=== PATIENT | female | born 1980 | race Hispanic/Latino ===

== ENCOUNTER 2017-07-06 22:07 | Inpatient (IN) | payer MEDICAID, OTHER, SELFPAY ==
[2017-07-06 22:51] VITALS: BMI 27.9
[2017-07-06] MEDS ORDERED: Promethazine HCl 25 MG/ML VIAL IM PRN (23:10)
[2017-07-06] MEDS ORDERED: Misoprostol 200 MCG TAB PR PRN (23:10)
[2017-07-06] MEDS ORDERED: Diphenoxylate HCl/Atropine Tablet PO PRN (23:10)
[2017-07-06] MEDS ORDERED: LR / Pitocin 40 units/1000 ml 1,000 ML IV PRN (23:10)
[2017-07-06] MEDS ORDERED: Lidocaine 1% (PF) 30 ML VIAL SC PRN ×2 (23:10→23:41)
[2017-07-06] MEDS ORDERED: Acetaminophen 500 MG TAB PO PRN (23:10)
[2017-07-06] MEDS ORDERED: Carboprost 250 MCG/ML AMP IM PRN (23:10)
[2017-07-06] MEDS ORDERED: HYDROcodone/Acetaminophen 5/325 mg Tablet PO PRN (23:10)
[2017-07-06] MEDS ORDERED: Ondansetron HCl/PF 4 MG/2 ML Vial IVP PRN (23:10)
[2017-07-06 23:29] LABS: Hematocrit 35.5 % (36.0-47.0); Mean Platelet Volume 8.2 fL (7.4-10.4); White Blood Cell (WBC) Count 7.5 thou/uL (4.8-10.8)
--- NOTE | 2017-07-06 23:41 | PDOC.LDHP ---
Labor and Delivery H&P Chief complaint: scheduled induction HPI: Patient is a 37yo at 40w1d here for cytotec induction, only complications in were AMA and UTI with negative CHRIS. Hx of x3 with no problems. Reports good FM, no LOF, no vaginal bleeding, no ctx. No recent illnesses, no dysuria, no vaginal discharge, no fevers. Current gestational age (weeks): 40 (40.1) Due date: 07/05/17 Dating criteria: last menstrual period Grav: 4 Para: 3 OB History Details: x3, term, no complications Current complications: other (advanced maternal age) Abnormal US findings: No Past Medical History: Breast mass removed at 20yo in [place] Current medications: pre- vitamins Social history: none - Physical Exam Vital signs reviewed and normal: yes Abnormal vital signs: none General: NAD Heart: RRR Lungs: CTAB Abdomen: gravid Extremeties: no edema FHT: category 1 (baseline HR is 160's) [place] contractions every: none seen - Vaginal Exam cm dilated: 0 (fingertip) Station: -3 - OB Labs Blood type: A RH: positive HIV: negative RPR: negative HEPSAg: negative 1 hour GCT: negative GBS: positive - Assessment L&D Assessment: elective induction at term - Plan Plan: admit to L&D, cervical ripening, labor augmentation if indicated, GBS antibiotic prophylaxis, anesthesia consult for pain management -: 37yo at 40.1 by LMP here for cytotec induction. - Admit to L&D, routine labor care - Cytotec q3h if no tachysystole - GBS positive: PCN prophylaxis, loading dose of 5mg and 2.5mg q6h thereafter - FHT reveals baseline HR of 160's, monitor closely for tachycardia, no signs or symptoms of infection at this point. - Cervical checks q4h <Evon Griggs - Last Filed: 07/06/17 23:43> <Teresa Delgado - Last Filed: 07/07/17 00:45> Allergies/Adverse Reactions: Allergies Allergy/AdvReac Type Severity Reaction Status Date / Time No Known Allergies Allergy Unverified 07/06/17 22:53 Attending Addendum - Attending Addendum I personally evaluated the patient and discussed the management with Dr. Griggs I agree with the History, Examination, Assessment and Plan documented above with any addition or exceptions noted below. 37 yo female at 40.1 wks by 11.4 wk sono here for elective IOL for AMA and late term gestation. 1. sIUP: IOB labs reviewed. NILM. Anatomy scan not in record at present but stated to be WNL. 1 hour gtt = 128. 3T negative. GBS positive. Vertex. EFW = 6 3 /4 lbs to 7 lbs. 2. AMA: Declined NIPT. 3. UTI x1: CHRIS negative. 4. GBS pos: PCN. 5. IOL: Solares of 3. Will start with miso. Continuous monitoring. Will likely feed in AM before proceeding. Anticipate long induction. Has been 6 years since last delivery. Gosia <Teresa Delgado - Last Filed: 07/07/17 00:45>
[2017-07-06] MEDS: Misoprostol 100 MCG TAB VAG SCH (23:42)
[2017-07-06] MEDS ORDERED: Penicillin G Potassium 5 MILL.UNITS in Sodium Chloride 0.9% 100 ML IVPB SCH (23:45)
[2017-07-06] MEDS: Lactated Ringer's 1,000 ML IV SCH (23:54)
[2017-07-07] MEDS: Lactated Ringer's 1,000 ML IV SCH ×2 (02:44→08:02)
[2017-07-07] MEDS ORDERED: Sodium Chloride 0.9% 1,000 ML IV ONE (03:17)
[2017-07-07] MEDS: Misoprostol 100 MCG TAB VAG SCH ×3 (03:59→15:58)
[2017-07-07] MEDS: Penicillin G 2.5 MILL.units 2.5 MILL.UNITS in Premix Bag 1 BAG IVPB SCH ×4 (04:01→12:05)
--- NOTE | 2017-07-07 05:17 | PDOC.LDPN ---
Labor & Delivery Progress Note - Subjective Subjective: comfortable - Objective Vital signs reviewed and normal: yes General: NAD, resting Uterine fundus: palpable contractions Dilation: 1 Station: -3 FHT: category 1 [place] contractions every: q3-5min Resuscitative measures: maternal oxygen, maternal IV fluids, maternal position change - Assessment (1) Elective induction of labor planned Code(s): [id number] - Current Visit: Yes Status: Acute Comment: 37yo at 40.1 by 11w2d sono here for elective IOL for AMA and late term . - Solares score of 3, cytotec placed at 2345 07/06, and again at 0400 07/07 - FHT strip has revealed some runs of tachycardia that resolved with a 1L bolus of LR. Will continue to monitor. - GBS positive, has recieved PCN x2 - continue routine labor care (2) AMA (advanced maternal age) multigravida 35+ Code(s): O09.529 - SUPERVISION OF ELDERLY MULTIGRAVIDA, UNSPECIFIED TRIMESTER Current Visit: Yes Status: Acute (3) Group beta Strep positive Code(s): B95.1 - STREPTOCOCCUS, GROUP B, CAUSING DISEASES CLASSD ELSWHR Current Visit: Yes Status: Acute Plan: continue plan of care, labor augmentation <Evon Griggs - Last Filed: 07/07/17 05:14> Attending Addendum - Attending Addendum I personally evaluated the patient and discussed the management with Dr. Griggs I agree with the History, Examination, Assessment and Plan documented above with any addition or exceptions noted below. 37 yo female at 40.2 wks by 11.4 wk sono here for elective IOL for AMA and late term gestation. 1. sIUP: IOB labs reviewed. NILM. Anatomy scan not in record at present but stated to be WNL. 1 hour gtt = 128. 3T negative. GBS positive. Vertex. EFW = 6 3 /4 lbs to 7 lbs. 2. AMA: Declined NIPT. 3. UTI x1: CHRIS negative. 4. GBS pos: PCN. 5. IOL: Miso x2. FHT reassuring Cat I at present. Will transfer care to day team. Monitor IVF intact. Would consider breakfast this AM if able. ABrayMD <Teresa Delgado - Last Filed: 07/07/17 09:18>
[2017-07-07] MEDS: Dextrose 5%-Lactated Ringers 1,000 ML IV SCH ×3 (06:06→15:58)
[2017-07-07] MEDS ORDERED: Lactated Ringer's 1,000 ML IV SCH (06:45)
[2017-07-07] MEDS ORDERED: Fentanyl 4 mcg/Marc 0.1% Cadd 100 ML ONE (08:10)
--- NOTE | 2017-07-07 08:24 | PDOC.LDPN ---
Labor & Delivery Progress Note - Subjective Subjective: painful contractions, no concerns - Objective Vital signs reviewed and normal: yes General: breathing through contractions Uterine fundus: non tender Effacement: 50% Station: -3 FHT: category 1 (bl hr 150s), early decelerations, variability present [place] contractions every: 2-3 min - Assessment (1) AMA (advanced maternal age) multigravida 35+ Code(s): O09.529 - SUPERVISION OF ELDERLY MULTIGRAVIDA, UNSPECIFIED TRIMESTER Current Visit: Yes Status: Acute (2) Elective induction of labor planned Code(s): [id number] - Current Visit: Yes Status: Acute (3) Group beta Strep positive Code(s): B95.1 - STREPTOCOCCUS, GROUP B, CAUSING DISEASES CLASSD ELSWHR Current Visit: Yes Status: Acute Plan: continue plan of care -: 37yo at 40.1 by 11w2d sono here for elective IOL for AMA and late term . - Solares score of 5 -cat 1 strip - GBS positive, has recieved PCN x2, third dose running now -cervical checks q2h -painful contractions q2-3 minutes, pt wishes to have epidural will consult anesthesia - continue routine labor care
[2017-07-07] MEDS ORDERED: Fentanyl 100 MCG/2 ML VIAL ONE (08:40)
[2017-07-07] MEDS ORDERED: Lidocaine 2% PF 10 ML AMP (For Epidural Use) ONE (11:11)
[2017-07-07] MEDS: Ibuprofen 800 MG TAB PO PRN (14:05)
[2017-07-07] MEDS ORDERED: Lanolin Ointment 7 GM TUBE TOP PRN (15:24)
[2017-07-07] MEDS ORDERED: Bisacodyl 10 MG SUPP PR PRN (15:24)
[2017-07-07] MEDS ORDERED: Ondansetron HCl/PF 4 MG/2 ML Vial IVP PRN (15:24)
[2017-07-07] MEDS ORDERED: Milk Of Magnesia 30 ML UDCUP PO PRN (15:24)
[2017-07-07] MEDS ORDERED: diphenhydrAMINE HCl 25 MG CAP PO PRN (15:24)
[2017-07-07] MEDS ORDERED: traMADol HCl 50 MG TAB PO PRN (15:24)
[2017-07-07] MEDS ORDERED: Adacel (T-DAP) 0.5 ML VIAL IM ONE (15:24)
[2017-07-07] MEDS ORDERED: LR / Pitocin 40 units/1000 ml 1,000 ML IV SCH (15:24)
[2017-07-07] MEDS: Ibuprofen 800 MG TAB PO SCH ×2 (15:59→21:24)
--- NOTE | 2017-07-07 16:07 | PDOC.OPDEL ---
OB Operative/Delivery Note Delivery Dr/Surgeon: Mathieu Jaramillo, Attending: Gary Lloyd Assist: Jon Hernández Pre-Delivery Diagnosis: active labor Procedure/Post Delivery Dx: spontaneous vaginal delivery Weeks gestation: 40 Anesthesia: epidural - Additional Findings/Plan Placenta delivered: spontaneous Repaired Obstetrical Laceration: 1st degree (repaired w/ 2-0 vicryl w/ adequate hemostasis) Estimated blood loss: 200 Compilations/Other Findings: G4 now P4 GBS+ mother with pcn X3, adequately ppx, delivered at 40.1 via on 07/07/2017 @ 1240, APGARS 9&9. EBL 200. 1st degree perineal lac repaired with 2-0 vicryl, adequate hemostasis. Placenta via zarate. Post delivery plan: routine recovery
[2017-07-07] MEDS: Ferrous Sulfate 325 MG TAB PO SCH (17:24)
[2017-07-07] MEDS: Docusate (Surfak) 240 MG CAP PO SCH (21:24)
[2017-07-08 05:29] LABS: #Eosinphils 0.1 thou/uL (0.0-0.7); #Lymphocytes 2.9 thou/uL (1.20-3.40); #Monocytes 0.5 thou/uL (0.11-0.59); #Neutrophils 6.4 thou/uL (1.40-6.50); %Basophils 0.4 % (0.0-1.0); %Lymphocytes 28.9 % (21.0-51.0); %Monocytes 5.2 % (0.0-10.0); Hematocrit 32.3 % (36.0-47.0); Mean Platelet Volume 7.8 fL (7.4-10.4); Red Blood Cell (RBC) Count 3.48 mill/uL (4.20-5.40); White Blood Cell (WBC) Count 9.9 thou/uL (4.8-10.8)
[2017-07-08] MEDS: Ibuprofen 800 MG TAB PO SCH ×3 (05:46→21:22)
--- NOTE | 2017-07-08 08:21 | PDOC.PP ---
Post Progress Note Post Day #: 1 PO intake tolerated: yes Flatus: yes Ambulation: yes Vital Signs (12 hours) Temp Pulse Resp BP 07/08/17 07:48 97.9 F 65 18 118/65 07/07/17 23:25 97.9 F 62 18 110/57 L Weight Weight 76.204 kg - Physical Examination General: NAD Cardiovascular: no m/r/g, RRR Respiratory: clear to ausculation bilateral Abdominal: + bowel sounds, lochia, no distention, appropriately TTP Extremities: negative homans (B) Neurological: no gross focal deficits Psychiatric: normal affect Result Diagrams: 07/08/17 05:19 Additional Labs: Post Labs Blood Type A POSITIVE 07/06/17 23:03 Hep Bs Antigen Non-Reactive S/CO (NonReactive) 07/06/17 23:03 (1) AMA (advanced maternal age) multigravida 35+ Code(s): O09.529 - SUPERVISION OF ELDERLY MULTIGRAVIDA, UNSPECIFIED TRIMESTER Status: Acute (2) Elective induction of labor planned Code(s): [id number] - Status: Acute (3) Group beta Strep positive Code(s): B95.1 - STREPTOCOCCUS, GROUP B, CAUSING DISEASES CLASSD ELSWHR Status : Acute - Assessment/Plan pt tolerating po, ambulating, urinating and passing flatus scant lochia, per nurse reports her pain is well controlled and she wishes to go home today she is GBS positive and received pen X3 prior to delivery VSS, H&H 10.9/32.3 will plan for DC today pending baby's 24 hr bili check is not high risk <Mathieu Jaramillo - Last Filed: 07/08/17 08:16> Vital Signs (12 hours) Temp Pulse Resp BP 07/08/17 08:00 97.9 F 65 18 07/08/17 07:48 97.9 F 65 18 118/65 Weight Weight 76.204 kg Result Diagrams: 07/08/17 05:19 Additional Labs: Post Labs Blood Type A POSITIVE 07/06/17 23:03 Hep Bs Antigen Non-Reactive S/CO (NonReactive) 07/06/17 23:03 <Gary Lloyd - Last Filed: 07/08/17 12:03> Attending Addendum - Attending Addendum I personally evaluated the patient and discussed the management with Dr. Jaramillo. I agree with the History, Examination, Assessment and Plan documented above with any addition or exceptions noted below. Recommend 48 hour stay 2/2 GBS status. Parents are thinking about discharge. Risks discussed. <Gary Lloyd - Last Filed: 07/08/17 12:03>
[2017-07-08] MEDS: Docusate (Surfak) 240 MG CAP PO SCH ×2 (09:09→21:23)
[2017-07-08] MEDS: Prenatal Vitamin 1 TAB PO SCH (09:09)
[2017-07-08] MEDS: Ferrous Sulfate 325 MG TAB PO SCH ×2 (09:09→18:26)
[2017-07-08] MEDS: Ibuprofen 800 MG TAB PO PRN (14:09)
[2017-07-09] MEDS: Ibuprofen 800 MG TAB PO SCH ×2 (05:49→14:16)
[2017-07-09 08:10] VITALS: BP 115/69; TEMP 98
--- NOTE | 2017-07-09 08:38 | PDOC.PP ---
Post Progress Note Post Day #: 2 PO intake tolerated: yes Flatus: yes Ambulation: yes Vital Signs (12 hours) Temp Pulse Resp BP 07/09/17 08:08 98.0 F 72 20 115/69 07/09/17 08:00 98.0 F 72 20 Weight Weight 76.204 kg - Physical Examination General: NAD Cardiovascular: no m/r/g, RRR Respiratory: clear to ausculation bilateral Abdominal: + bowel sounds, no distention, appropriately TTP Extremities: negative homans (B) Neurological: no gross focal deficits Psychiatric: normal affect Result Diagrams: 07/08/17 05:19 Additional Labs: Post Labs Blood Type A POSITIVE 07/06/17 23:03 Hep Bs Antigen Non-Reactive S/CO (NonReactive) 07/06/17 23:03 (1) AMA (advanced maternal age) multigravida 35+ Code(s): O09.529 - SUPERVISION OF ELDERLY MULTIGRAVIDA, UNSPECIFIED TRIMESTER Status: Acute (2) Elective induction of labor planned Code(s): [id number] - Status: Acute (3) Group beta Strep positive Code(s): B95.1 - STREPTOCOCCUS, GROUP B, CAUSING DISEASES CLASSD ELSWHR Status : Acute - Assessment/Plan pt tolerating po, ambulating, urinating and passing flatus reports her pain is well controlled, decided to stay yesterday 2/2 baby being obs 2/2 moms gbs status she is GBS positive and received pen X3 prior to delivery VSS, H&H 10.9/32.3 will plan for DC today. <Mathieu Jaramillo - Last Filed: 07/09/17 08:37> Vital Signs (12 hours) Temp Pulse Resp BP 07/09/17 08:08 98.0 F 72 20 115/69 07/09/17 08:00 98.0 F 72 20 Weight Weight 76.204 kg Result Diagrams: 07/08/17 05:19 Additional Labs: Post Labs Blood Type A POSITIVE 07/06/17 23:03 Hep Bs Antigen Non-Reactive S/CO (NonReactive) 07/06/17 23:03 <Gary Lloyd - Last Filed: 07/09/17 10:41> Attending Addendum - Attending Addendum I personally evaluated the patient and discussed the management with Dr. Jaramillo. I agree with the History, Examination, Assessment and Plan documented above with any addition or exceptions noted below. Ok for d/c after 48h obs <Gary Lloyd - Last Filed: 07/09/17 10:41>
[2017-07-09] MEDS: Prenatal Vitamin 1 TAB PO SCH (09:28)
[2017-07-09] MEDS: Docusate (Surfak) 240 MG CAP PO SCH (09:28)
[2017-07-09] MEDS: Ferrous Sulfate 325 MG TAB PO SCH (09:31)
== END 2017-07-09 15:30 | disposition home or self-care (01) | DRG 774 ==
LOC: L&D 22:07 → 3SW 07-07 16:04
PROVIDERS: ADMIT Student in an Organized Health Care Education/Training Program; ATTEND Student in an Organized Health Care Education/Training Program
PROC: 10E0XZZ Delivery of Products of Conception, External Approach (ICD-10-PCS; principal; 2017-07-07)
PROC: 0HQ9XZZ Repair Perineum Skin, External Approach (ICD-10-PCS; 2017-07-07)
PROC: 3E0P3VZ Introduction of Hormone into Female Reproductive, Percutaneous Approach (ICD-10-PCS; 2017-07-07)
DX: O70.0 First degree perineal laceration during delivery (principal); O75.3 Other infection during labor; N39.0 Urinary tract infection, site not specified; O99.824 Streptococcus B carrier state complicating childbirth; Z3A.40 40 weeks gestation of pregnancy; Z37.0 Single live birth; Z23 Encounter for immunization
CPT/HCPCS: 36415; 76815; 85025; 85027; 86780; 87340; 90715; J2001; J2540; J3010; J7050

== ENCOUNTER 2019-12-08 19:30 | Inpatient (IN) | payer MEDICAID, OTHER, SELFPAY ==
[2019-12-08 20:48] VITALS: BMI 28.0
[2019-12-08] MEDS: Lactated Ringer's 1,000 ML IV SCH (21:14)
[2019-12-08] MEDS ORDERED: NS / Oxytocin 40 units/1000ml 1,000 ML IV PRN (22:04)
[2019-12-08] MEDS ORDERED: Promethazine HCl 25 MG/ML VIAL IM PRN (22:04)
[2019-12-08] MEDS ORDERED: Lidocaine 1% (PF) 30 ML VIAL SC PRN (22:04)
[2019-12-08] MEDS ORDERED: Misoprostol 200 MCG TAB PR PRN (22:04)
[2019-12-08] MEDS ORDERED: hydrALAZINE 20 MG/ML VIAL SLOW IVP PRN (22:04)
[2019-12-08] MEDS ORDERED: Ondansetron PF 4 MG/2 ML Vial IVP PRN (22:04)
[2019-12-08] MEDS ORDERED: Butorphanol Tartrate 1 MG/ML VIAL SLOW IVP PRN (22:04)
[2019-12-08] MEDS ORDERED: Acetaminophen 500 MG TAB PO PRN (22:04)
[2019-12-08] MEDS ORDERED: Methylergonovine 0.2 MG/ML VIAL IM PRN (22:04)
--- NOTE | 2019-12-08 22:06 | PDOC.FPROB ---
FMR OB H&P: HPI - History of Present Illness Chief Complaint: scheduled blaloon IOL Indentification: 39F @ 40.0wga by 14wk US History of Present Illness: Patient is a 39F @ 40.0wga by 14wk US here today for balloon IOL. Patient reports feeling an occasional contraction, denies vaginal discharge, loss of fluid, or vaginal bleeding. Endorses movement. Denies cp, sob, abdominal pain, swelling, headaches, vision changes. Desires an epidural. Plans on breast/bottle feeding. has been complicated by: -AMA -Anemia of -Grandmultiparity -+PPD (neg CXR 11/08) She is here today for scheduled balloon IOL. Risks and benefits of a balloon induction were discussed and patient was agreeable with the plan of care. 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 - Surgical History Sx History: L breast cyst removed age 20 - Social History Social History: non smoker, no etoh, no drug use - Family History Family History: paternal uncle of DM FMR OB H&P: Medications - Current Home Medications: Medication Instructions Recorded Confirmed Type 21/Iron Fu/Folic Acid 1 tablet PO DAILY 07/06/17 07/06/17 History [ Complete Caplet] Allergies/Adverse Reactions: Allergies Allergy/AdvReac Type Severity Reaction Status Date / Time No Known Allergies Allergy Verified 12/08/19 20:49 FMR OB H&P: ROS - Review of Systems General: denies: fever/chills, weight/appetite/sleep changes Eyes: denies: eye pain, vision changes ENT: denies: nasal congestion, rhinorrhea Cardiovascular: denies: chest pain, edema Respiratory: denies: cough, shortness of breath Gastrointestinal: denies: abdominal pain, vomiting, constipation Genitourinary (Female): denies: incontinence, dysuria Musculoskeletal: denies: pain, tenderness Neurologic: denies: syncope, seizures Integumentary: denies: itching, rash Endocrine: denies: cold intolerance, heat intolerance Hematologic/Lymphatic: denies: prolonged or excessive bleeding, enlarged lymph nodes Psychological: denies: depression, anxiety FMR OB H&P: Vital Signs - Maternal Vital signs: BP 103/69, p83, 98.1F - Heart Tones Baseline: 135 Variability: moderate Acceleration: present Deceleration: absent Category: category 1 [place] contractions every: occasional FMR OB H&P: Physical Exam - Physical Exam General: NAD, awake, alert and oriented HEENT: normocephalic and atraumatic, MMM Neck: supple, FROM Chest: non-tender to palpation, no lesions Heart: RRR, normal S1/S2 General: CTAB, no respiratory distress Abdomen: gravid, non-tender, bowel sound present Musculoskeletal: normal gait and station, pulses present, FROM in all four extremities Neurological: no clonus, no focal deficit Skin: no rash, good tugor Lymphatic: no unusual bruising or bleeding, no purpura Psychiatric: intact recent and remote memory, good judgement and insight - Pelvic Exam Vulva: normal hair distribution SVE: 1/thick/high FMR OB H&P: A/P - Problem List (1) Anemia affecting Current Visit: Yes Status: Acute Code(s): O99.019 - ANEMIA COMPLICATING , UNSPECIFIED TRIMESTER Qualifiers: Trimester: third trimester Qualified Code(s): O99.013 - Anemia complicating , third trimester (2) Multiparity, grand, in labor and delivery, antepartum Current Visit: Yes Status: Chronic Code(s): O09.40 - SUPERVISION OF W GRAND MULTIPARITY, UNSP TRIMESTER (3) PPD positive Current Visit: Yes Status: Chronic Code(s): R76.11 - NONSPECIFIC REACTION TO SKIN TEST W/O ACTIVE TUBERCULOSIS (4) AMA (advanced maternal age) multigravida 35+ Current Visit: No Status: Chronic Code(s): O09.529 - SUPERVISION OF ELDERLY MULTIGRAVIDA, UNSPECIFIED TRIMESTER (5) Elective induction of labor planned Current Visit: No Status: Acute Code(s): [id number] - Disposition: Patient is a 39F @ 40.0wga by 14wk US here today for balloon IOL. #Term sIUP, balloon IOL #Grandmultiparity -FHT: baseline 135, occasional ctx, cat 1 strip -SVE: 1/thick/high -GBS neg, PNL neg -will place balloon at this time and proceed with pit; will continue cervical checks q4h s/p balloon placement #Anemia of -H/H 12/35.2 on 10/25 -H/H 12.4/36.4 today -will continue to monitor #+PPD -no cough or other symptoms of TB -CXR negative 11/08 Diet: NPO with ice chips Dispo: admitted to L&D for balloon induction of labor + pit; will continue to monitor FHT and cervical checks q4h or sooner prn Code: Full PCP: MARCELLE-Jude/Kenrick/Danny Discussion: Date/Time: 12/08/19 2206 This H&P was discussed with [Kenrick] and [Carlos] who agree with the above documentation and plan. Signature: Maddie Collier-PGY1 Addendum - Attending - Attending Attestation Date/Time: 12/09/19 0800 I personally evaluated the patient and discussed the management with Dr. Collier I agree with the History, Examination, Assessment and Plan documented above with any addition or exceptions noted below. Balloon placed. expectant management.
[2019-12-08 22:27] LABS: Hemoglobin 12.4 g/dL (12.0-16.0); Mean Corpuscular Hemoglobin 30.9 pg (27.0-31.0); Mean Corpuscular Volume 91.1 fL (78.0-98.0); Mean Platelet Volume 9.6 fL (7.4-10.4); Platelet Count 161 thou/uL (130-400); White Blood Cell (WBC) Count 9.3 thou/uL (4.8-10.8)
[2019-12-08 23:05] LABS: Syphilis Antibody Nonreactive (Nonreactive); Syphilis Antibody Index 0.07 S/CO (<1.00 Non-Reactive)
[2019-12-08 23:14] LABS: HBSAg Index 0.11 S/CO (0-0.99); Hep B Surf Ag Non-Reactive S/CO (NonReactive)
[2019-12-09] MEDS ORDERED: Fentanyl 4 mcg/Bup 0.1% Cadd 100 ML ONE ×4 (01:45→17:10)
[2019-12-09] MEDS: Lactated Ringer's 1,000 ML IV SCH ×3 (02:25→15:21)
[2019-12-09] MEDS ORDERED: Acetaminophen 325 MG TAB PO PRN (02:31)
[2019-12-09] MEDS ORDERED: Lactated Ringer's 500 ML IV PRN (02:31)
[2019-12-09] MEDS ORDERED: Promethazine HCl 25 MG/ML VIAL IM PRN (02:31)
[2019-12-09] MEDS ORDERED: Naloxone HCl 0.4 mg/ml Vial IVP PRN ×2 (02:31)
[2019-12-09] MEDS ORDERED: Ondansetron PF 4 MG/2 ML Vial IVP PRN (02:31)
[2019-12-09] MEDS ORDERED: diphenhydrAMINE 50 MG/ML VIAL IVP PRN (02:31)
[2019-12-09] MEDS ORDERED: EPHEDRINE 25 MG/5 ML SYRINGE SLOW IVP PRN (02:31)
[2019-12-09] MEDS ORDERED: Communication Order-Pharmacy FS SCH (02:45)
[2019-12-09] MEDS ORDERED: Fentanyl 4 mcg/Bupivacaine 0.1% Cassette 100 ML EPIDURAL SCH (02:45)
[2019-12-09] MEDS ORDERED: NS / Oxytocin 40 units/1000ml 1,000 ML IV PRN (02:56)
[2019-12-09] MEDS ORDERED: Lidocaine 1% (PF) 30 ML VIAL SC PRN (02:56)
[2019-12-09] MEDS: NS w/ Oxytocin 10 units 500 ML IV SCH ×3 (03:16→17:40)
--- NOTE | 2019-12-09 06:46 | PDOC.LDPN ---
Labor & Delivery Progress Note - Subjective Subjective: comfortable - Objective Vital signs reviewed and normal: yes General: NAD, resting Uterine fundus: non tender SVE: 50/-3 FHT: category 1, variability present [place] contractions every: 3-4 - Assessment (1) Anemia affecting Code(s): O99.019 - ANEMIA COMPLICATING , UNSPECIFIED TRIMESTER Current Visit: Yes Status: Acute Qualifiers: Trimester: third trimester Qualified Code(s): O99.013 - Anemia complicating , third trimester (2) Multiparity, grand, in labor and delivery, antepartum Code(s): O09.40 - SUPERVISION OF W GRAND MULTIPARITY, UNSP TRIMESTER Current Visit: Yes Status: Chronic (3) PPD positive Code(s): R76.11 - NONSPECIFIC REACTION TO SKIN TEST W/O ACTIVE TUBERCULOSIS Current Visit: Yes Status: Chronic (4) AMA (advanced maternal age) multigravida 35+ Code(s): O09.529 - SUPERVISION OF ELDERLY MULTIGRAVIDA, UNSPECIFIED TRIMESTER Current Visit: No Status: Chronic (5) Elective induction of labor planned Code(s): [id number] - Current Visit: No Status: Acute Plan: continue plan of care, pitocin for augmentation -: Patient is a 39F @ 40.1wga by 14wk US here today for balloon IOL. #Term sIUP, balloon IOL #Grandmultiparity -FHT: baseline 135, ctx q3-4, cat 1 strip -SVE: /-3 @ 0620, balloon out, pit @ 8 -GBS neg, PNL neg #Anemia of -H/H 12/35.2 on 10/25 -H/H 12.4/36.4 on admission -will continue to monitor #+PPD -no cough or other symptoms of TB -CXR negative 11/08 Diet: NPO with ice chips Dispo: admitted to L&D IOL; balloon out and cat 1 strip on pit; will continue to monitor FHT and cervical checks q2h or sooner prn Code: Full PCP: PNC-Jude/Kenrick/Danny
--- NOTE | 2019-12-09 12:39 | PDOC.LDPN ---
Labor & Delivery Progress Note - Subjective Subjective: comfortable - Objective Vital signs reviewed and normal: yes General: NAD, resting Uterine fundus: non tender Dilation: 5 Effacement: 25% Station: -3 FHT: category 1 (150/mod/+accels/no decels) Plan: continue plan of care -: Epidural in place, comfortable Pitocin at 16. Head not well engaged, cannot safely AROM. Continue serial cervical checks.
--- NOTE | 2019-12-09 17:12 | PDOC.LDPN ---
Labor & Delivery Progress Note - Subjective Subjective: comfortable - Objective Vital signs reviewed and normal: yes General: NAD, resting Dilation: 6 Effacement: 50% Station: -3 FHT: category 1 [place] contractions every: 3-4min Plan: continue plan of care -: FHTs 140 Cat 1 Making small change /-3 Continue pitocin and serial cervical checks
--- NOTE | 2019-12-09 19:36 | PDOC.LDPN ---
Labor & Delivery Progress Note - Subjective Subjective: comfortable, painful contractions - Objective Abnormal vital signs: A few BP 140s-150s/60s-80s General: NAD, resting Uterine fundus: non tender SVE: /-2 AROM: clear fluid - Assessment (1) Anemia affecting Code(s): O99.019 - ANEMIA COMPLICATING , UNSPECIFIED TRIMESTER Current Visit: Yes Status: Acute Qualifiers: Trimester: third trimester Qualified Code(s): O99.013 - Anemia complicating , third trimester (2) Multiparity, grand, in labor and delivery, antepartum Code(s): O09.40 - SUPERVISION OF W GRAND MULTIPARITY, UNSP TRIMESTER Current Visit: Yes Status: Chronic (3) PPD positive Code(s): R76.11 - NONSPECIFIC REACTION TO SKIN TEST W/O ACTIVE TUBERCULOSIS Current Visit: Yes Status: Chronic (4) AMA (advanced maternal age) multigravida 35+ Code(s): O09.529 - SUPERVISION OF ELDERLY MULTIGRAVIDA, UNSPECIFIED TRIMESTER Current Visit: No Status: Chronic (5) Elective induction of labor planned Code(s): [id number] - Current Visit: No Status: Acute Plan: continue plan of care, pitocin for augmentation -: SROM @ 1851, /-2 at that time FHT: cat 1, baseline 135, ctx 2-3min, few early decels, no variables or lates BP: 134-151/63-87, patient denies GROSSMAN, changes in vision, swelling at this time. CBC, CMP, urine protein/creatinine pending Continue pit. Will continue to monitor FHT and repeat cervical checks q2h, likely sooner with earlys. Pre-e labs pending, will follow. Case discussed with Dr. Choudhary who is in agreement with the current plan of care.
[2019-12-09] MEDS ORDERED: Lidocaine 1% (PF) 30 ML VIAL ONE (19:59)
[2019-12-09] MEDS ORDERED: NS / Oxytocin 40 units/1000ml 1,000 ML ONE (19:59)
[2019-12-09 20:07] LABS: #Lymphocytes 1.4 thou/uL (1.20-3.40); #Monocytes 0.3 thou/uL (0.11-0.59); #Neutrophils 11.2 thou/uL (1.40-6.50); %Eosinophils 0.1 % (0.0-10.0); %Lymphocytes 10.5 % (21.0-51.0); %Monocytes 2.6 % (0.0-10.0); %Neutrophils 86.7 % (42.0-75.0); Hemoglobin 13.3 g/dL (12.0-16.0); Mean Corpuscular HGB CONC 34.7 g/dL (32.0-36.0); Mean Platelet Volume 9.3 fL (7.4-10.4); Platelet Count 153 thou/uL (130-400); Red Blood Cell (RBC) Count 4.15 mill/uL (4.20-5.40); White Blood Cell (WBC) Count 12.9 thou/uL (4.8-10.8)
[2019-12-09 20:27] LABS: Creatinine, Urine 67.73 mg/dL (47-110)
[2019-12-09] MEDS ORDERED: Calcium Gluc 4.6 MEQ/10 ML (100 MG/ML) SLOW IVP PRN (20:52)
[2019-12-09] MEDS ORDERED: Magnesium Sulfate 20 gm/500 ml 20 GM/500 ML BAG IVPB SCH (21:00)
[2019-12-09] MEDS ORDERED: Magnesium Sulfate 20 GM/WATER 500 ML BAG IVPB SCH (21:00)
[2019-12-09] MEDS ORDERED: Magnesium Sulfate 20 gm/500 ml 20 GM/500 ML BAG ONE (21:05)
--- NOTE | 2019-12-09 21:11 | PDOC.LDPN ---
Labor & Delivery Progress Note - Subjective Subjective: comfortable, painful contractions - Objective General: resting, breathing through contractions Uterine fundus: non tender SVE: FHT: category 2, variability present [place] contractions every: 2-3 - Assessment (1) Anemia affecting Code(s): O99.019 - ANEMIA COMPLICATING , UNSPECIFIED TRIMESTER Current Visit: Yes Status: Acute Qualifiers: Trimester: third trimester Qualified Code(s): O99.013 - Anemia complicating , third trimester (2) Multiparity, grand, in labor and delivery, antepartum Code(s): O09.40 - SUPERVISION OF W GRAND MULTIPARITY, UNSP TRIMESTER Current Visit: Yes Status: Chronic (3) PPD positive Code(s): R76.11 - NONSPECIFIC REACTION TO SKIN TEST W/O ACTIVE TUBERCULOSIS Current Visit: Yes Status: Chronic (4) AMA (advanced maternal age) multigravida 35+ Code(s): O09.529 - SUPERVISION OF ELDERLY MULTIGRAVIDA, UNSPECIFIED TRIMESTER Current Visit: No Status: Chronic (5) Elective induction of labor planned Code(s): [id number] - Current Visit: No Status: Acute Plan: continue plan of care, pitocin for augmentation -: SROM @ 1851, /-2 at that time 2 @ 2047 FHT: cat 2, baseline 135, ctx 2-3min, few early decels, one variables that improved with position changes BP: 160s-180s/70s-80s, patient denies GROSSMAN, changes in vision, swelling at this time. urine protein/creatinine 0.33 Pre-eclampsia with severe features due to BP. Will start mag at this time with q1h mag checks, strict I/O, and BP monitoring Continue pit. Will continue to monitor FHT and repeat cervical checks. Case discussed with Dr. Choudhary who is in agreement with the current plan of care.
[2019-12-09 21:26] LABS: ALT (SGPT) 12 U/L (8-55); AST (SGOT) 17 U/L (5-34); Albumin 3.6 g/dL (3.5-5.0); Alkaline Phosphatase 127 U/L (40-110); Anion Gap 16 mmol/L (10-20); BUN (Urea Nitrogen) 7 mg/dL (7.0-18.7); Bilirubin, Total 0.6 mg/dL (0.2-1.2); Calc. Creatinine Clearance 140 mL/min (70-130); Calcium 8.6 mg/dL (7.8-10.44); Carbon Dioxide 17 mmol/L (22-29); Chloride 107 mmol/L (98-107); Estimated GFR-MDRD Greater than 90; Globulin 2.8 g/dL (2.4-3.5); Glucose 65 mg/dL (70-105); Potassium 3.8 mmol/L (3.5-5.1); Protein, Total 6.4 g/dL (6.0-8.3); Sodium 136 mmol/L (136-145)
[2019-12-09] MEDS ORDERED: Misoprostol 200 MCG TAB ONE (21:37)
--- NOTE | 2019-12-09 22:03 | PDOC.OPDEL ---
OB Operative/Delivery Note Delivery Dr/Surgeon: Nando Roque Frakes - Additional Findings/Plan Compilations/Other Findings: Delivering Physician: Dr. Rossy Roque, Dr. Maddie Collier Attending: Dr. Delgado Choudhary Procedure: Spontaneous Vaginal Delivery Anesthesia: epidural EBL: 350 ml Pre-op Diagnosis: 1. Term intrauterine in labor 2. Pre-E with severe features 3. AMA 4. Anemia of 5. Grandmultiparity 6. +PPD, CXR neg Post-op Diagnosis: 1. Term intrauterine , delivered 2. same as above Indications: A 39y/o female presents to L&D for elective balloon induction Delivery Note: This is 39yo F @ 40.1wks who delivered a viable F infant at 2135 on 12/09/2019. The patient had a successful balloon induction. She developed elevated BP within the hour before delivery, so stat CBC, CMP, and urine protein/creatinine was ordered and a diagnosis of pre-e with severe features was made. Magnesium was started. At delivery a vigorous F was delivered over an intact perineum in the occipitoanterior position. Anterior shoulder and then remainder of the body delivered. No nuchal cord. The head was held down and mouth and nares were bulb suctioned. Cord clamped after delayed cord clamping and cut and cord blood collected. Placenta delivered intact in the [place] with a 3 vessel cord noted. Fundal massage was performed and the fundus was firm. The cervix and vagina were inspected and found to be free of lacerations. went to nursery in good condition for routine care. Apgars were 9/9 at 1 & 5 minutes, respectively. Patient tolerated delivery well and will stay on L&D for continuous mag for the next 12-24 hours with q4h mag checks, BP monitoring, and strict I/O. Addendum - Attending - Attending Attestation Date/Time: 12/10/19 1503 Agree with above documentation. patient given [place] cytotec shortly after delivery. Continue IV Mg. baby to well nursery
[2019-12-09] MEDS: Carboprost 250 MCG/ML AMP IM PRN (23:40)
[2019-12-09] MEDS ORDERED: Tranexamic Acid 1,000 MG/10 ML VIAL ONE (23:48)
[2019-12-09 23:54] LABS: Hemoglobin 11.7 g/dL (12.0-16.0); Platelet Count 136 thou/uL (130-400)
[2019-12-10] MEDS: Tranexamic Acid 1,000 MG in Sodium Chloride 0.9% 250 ML 250 ML IVPB SCH ×2 (00:03→00:45)
[2019-12-10] MEDS ORDERED: Carboprost 250 MCG/ML AMP ONE (00:10)
[2019-12-10] MEDS: Carboprost 250 MCG/ML AMP IM PRN (00:12)
--- NOTE | 2019-12-10 00:34 | PDOC.BPN ---
Addendum entered and electronically signed by Mathieu Jaramillo DO 12/10/19 08: 03: Pt seen and examined with Dr Collier. Bimanual exam showed minimal clots, uterine fundus firm. Pt BP stable and tachycardia mild in high 90s. Resolved after hemabate x2, txa x2. QBL 100, repeat hemagram stable. Bleeding scant after 2nd dose of txa. Original Note: <Maddie Collier - Last Filed: 12/10/19 01:13> - Brief Progress Note Was called to patient's bedside due to continued vaginal bleeding. Uterus appeared firm, no lacs appreciated during thorough evaluation at delivery. Patient's pulse was noted to be elevated in the 90s, BP stable. Stat H/H with platelets was ordered. Type and cross 2u pRBC was ordered. The patient had pitocin running. She was given 2 doses of hemabate and 2 doses of TXA. QBL after delivery was 350, QBL currently is 1055ml. After all of these measures patient's pulse has decreased and her BP is stable. Patient's mag has continued to run throughout this process for her Pre-e with severe features. BP 121-148/55-82, reflexes 2+, patient resting comfortably in the bed Urine output 150-300ml/hr H/H shows 13.3/38.2 > 11.7/34.3 US shows small amount of blood in the uterus, appears coagulated Will repeat H/H @ 0200. Bleeding has appeared to slow substantially and vitals are currently stable. Can consider bakri balloon as next step. Will continue to monitor BP, urine output, and reflexes. Case has been discussed with Dr. Delgado and Dr. Jaramillo who are in agreement with the current plan of care. <Teresa Delgado - Last Filed: 12/11/19 16:17> - Brief Progress Note Agree with above documentation and management. Hemorrhage resolved after interventions. Patient's vitals remained stable. Will continue to monitor close. Trend UOP and vitals. Atony likely etiology of hemorrhage. Gosia
[2019-12-10] MEDS ORDERED: Tranexamic Acid 1,000 MG in Sodium Chloride 0.9% 250 ML 250 ML IVPB SCH ×2 (00:45→01:00)
[2019-12-10] MEDS ORDERED: Diphenoxylate HCl/Atropine Tablet PO PRN (01:00)
[2019-12-10 02:42] LABS: Platelet Count 136 thou/uL (130-400)
[2019-12-10 02:47] LABS: Hemoglobin 11.4 g/dL (12.0-16.0); Mean Corpuscular Hemoglobin 32.2 pg (27.0-31.0); Red Blood Cell (RBC) Count 3.53 mill/uL (4.20-5.40); White Blood Cell (WBC) Count 15.5 thou/uL (4.8-10.8)
--- NOTE | 2019-12-10 05:04 | PDOC.BPN ---
<Maddie Collier - Last Filed: 12/10/19 05:04> - Brief Progress Note S: Patient doing well, resting comfortably. Has had minimal bleeding since the second dose of TXA. Denies difficulty with breathing or any chest pain. O: BP: 98-148/55-73, p 60s-100s Urine Output: 200-725ml/hr Reflexes: 2+ Cardiac: RRR Respiratory: CTAB Minimal lochia A: 39F delivered via on 12/10/19 @ 2135. Pre-E with severe features due to elevated BP within the hour before delivery, on mag. PP hemorrhage controlled with 800mg cytotec, pit, 2 doses hemabate, 2 doses TXA. P: BP are better controlled. Patient is diuresing well. Will continue to monitor urine output and BP closely. Continue mag and mag checks q4h. Minimal bleeding/lochia, hemorrhage controlled. Will continue to monitor H/H. <Teresa Delgado - Last Filed: 12/11/19 16:19> - Brief Progress Note Agree with documentation and management as stated above. Preeclampsia stable. Without symptoms. BP non-severe. No evidence of mag tox. PPH improved. Minimal bleeding. Continue close monitoring. Gosia
[2019-12-10] MEDS ORDERED: Milk Of Magnesia 30 ML UDCUP PO PRN (05:37)
[2019-12-10] MEDS ORDERED: Lanolin Ointment 7 GM TUBE TOP PRN (05:37)
[2019-12-10] MEDS ORDERED: Bisacodyl 10 MG SUPP PR PRN (05:37)
[2019-12-10] MEDS: Ibuprofen 800 MG TAB PO SCH ×3 (08:10→21:25)
[2019-12-10] MEDS ORDERED: Adacel (T-DAP) 0.5 ML SYRINGE IM ONE (09:00)
--- NOTE | 2019-12-10 10:16 | PDOC.PP ---
Post Progress Note Post Day #: 1 Subjective: Tachycardic with continued bleeding after delivery, received hemabate x2, TXA x2 , cytotec. Lochia has slowed. Currently on Mg, nonambulatory, tolerating clears. Plans to breast and bottle feed. PO intake tolerated: yes (clears) Flatus: no Ambulation: no Weight Weight 78.925 kg - Physical Examination General: NAD Cardiovascular: no m/r/g, RRR Respiratory: clear to auscultation bilaterally Abdominal: appropriately TTP Neurological: no gross focal deficits Deviation from normal: Reflexes 0 bilateral brachioradialis, brachial and patellar Psychiatric: A&Ox3, normal affect Result Diagrams: 12/10/19 02:22 12/09/19 20:00 Additional Labs: Post Labs Blood Type A POSITIVE 12/08/19 22:19 Hep Bs Antigen Non-Reactive S/CO (NonReactive) 12/08/19 22:18 - Assessment/Plan 39yo female delivered via on 12/10/19 @2135 Term sIUP, delivered - Tolerating clears - Will follow up with [facility] PP PPH - VSS - QBL 1055, 350 after delivery - Received Cytotec 800mg, Hemabate x2, TXA x2 after delivery - H&H 13.3/38.2 > 11.7/34.3 -> 11.4/32.5 - US- small amount of blood in the uterus, appears coagulated PreEclampsia - On Mag for >12hours. Only 2 severe range pressures immediately before delivery while patient was in pain. 120's after delivery. BPs good overnight. Urine output has been good. Will discontinue Mg and monitor BP for 4 hours prior to moving to . Addendum - Attending - Attending Attestation Date/Time: 12/10/19 [id number] I personally evaluated the patient and discussed the management with Dr. Roque. I agree with the History, Examination, Assessment and Plan documented above with any addition or exceptions noted below. Repeat H&H in AM. BP stable with 12 hr mg and had adequate diuresis. Likely d/c am.
[2019-12-10] MEDS: Ferrous Sulfate 325 MG TAB PO SCH (17:06)
[2019-12-10] MEDS: Docusate Calcium (SURFAK) 240 MG CAP PO SCH ×2 (17:06→21:26)
[2019-12-10] MEDS: Prenatal Vitamin 1 TAB PO SCH (17:06)
[2019-12-10] MEDS: Lactated Ringer's 1,000 ML IV SCH (17:07)
[2019-12-11] MEDS: Ibuprofen 800 MG TAB PO SCH (05:15)
[2019-12-11] MEDS: Lactated Ringer's 1,000 ML IV SCH ×2 (05:41→07:31)
[2019-12-11 05:52] LABS: Hemoglobin 9.2 g/dL (12.0-16.0); Mean Corpuscular HGB CONC 34.6 g/dL (32.0-36.0); Mean Corpuscular Hemoglobin 32.2 pg (27.0-31.0); Mean Corpuscular Volume 93.1 fL (78.0-98.0); Mean Platelet Volume 8.6 fL (7.4-10.4); Platelet Count 137 thou/uL (130-400); RBC Distribution Width 12.2 % (11.5-14.5); Red Blood Cell (RBC) Count 2.84 mill/uL (4.20-5.40); White Blood Cell (WBC) Count 10.8 thou/uL (4.8-10.8)
[2019-12-11] MEDS: Ferrous Sulfate 325 MG TAB PO SCH (09:15)
[2019-12-11] MEDS: Prenatal Vitamin 1 TAB PO SCH (09:16)
[2019-12-11] MEDS: Docusate Calcium (SURFAK) 240 MG CAP PO SCH (09:16)
[2019-12-11 09:41] VITALS: BP 109/58; TEMP 98.3
--- NOTE | 2019-12-11 10:40 | PDOC.PP ---
Post Progress Note Post Day #: 2 Subjective: Pain well controlled. Ambulating, tolerating diet. Feeding going well. Ready to discharge home today. PO intake tolerated: yes Flatus: yes Ambulation: yes Vital Signs (12 hours) Temp Pulse Resp BP BP Pulse Ox 12/11/19 08:00 98.3 F 70 16 109/58 L 99 12/11/19 05:10 98.0 F 70 18 113/65 12/11/19 01:05 98.6 F 85 18 137/67 Weight Weight 78.925 kg - Physical Examination General: NAD Cardiovascular: no m/r/g, RRR Respiratory: clear to auscultation bilaterally Abdominal: + bowel sounds, appropriately TTP Fundus firm & at: below unbilicus Skin: no rash Neurological: no gross focal deficits Psychiatric: A&Ox3, normal affect Result Diagrams: 12/11/19 05:45 12/09/19 20:00 Additional Labs: Post Labs Blood Type A POSITIVE 12/08/19 22:19 Hep Bs Antigen Non-Reactive S/CO (NonReactive) 12/08/19 22:18 - Assessment/Plan 39yo female delivered via on 12/10/19 @2135 Term sIUP, delivered - Meeting all PP milestones - Will follow up with [facility] PP - interested in vasectomy PPH - VSS - H/H stable PreEclampsia - s/p Mg - BPs well controlled - F/U at [facility] in 1 week Dispo: Discharge home today Addendum - Attending - Attending Attestation Date/Time: 12/11/19 1200 I personally evaluated the patient and discussed the management with Dr. Roque I agree with the History, Examination, Assessment and Plan documented above with any addition or exceptions noted below. Discussed Pre-E w/ severe features at length. f/u 1 wk [facility] for BP check. RTC if having severe features.
== END 2019-12-11 12:55 | disposition home or self-care (01) | DRG 806 ==
LOC: L&D 19:59 → UNDOADMIN 19:59 → L&D 12-09 21:35 → 3SW 12-10 13:21
PROVIDERS: ADMIT Family Medicine; ATTEND Family Medicine
PROC: 10E0XZZ Delivery of Products of Conception, External Approach (ICD-10-PCS; principal; 2019-12-09)
PROC: 0U7C7ZZ Dilation of Cervix, Via Natural or Artificial Opening (ICD-10-PCS; 2019-12-09)
PROC: 3E0P7VZ Introduction of Hormone into Female Reproductive, Via Natural or Artificial Opening (ICD-10-PCS; 2019-12-09)
PROC: 3E033VJ Introduction of Other Hormone into Peripheral Vein, Percutaneous Approach (ICD-10-PCS; 2019-12-09)
DX: O99.02 Anemia complicating childbirth (principal); O72.1 Other immediate postpartum hemorrhage; Z37.0 Single live birth; O14.14 Severe pre-eclampsia complicating childbirth; D64.9 Anemia, unspecified; Z3A.40 40 weeks gestation of pregnancy; O90.89 Other complications of the puerperium, not elsewhere classified; R00.0 Tachycardia, unspecified; R76.11 Nonspecific reaction to tuberculin skin test without active tuberculosis
CPT/HCPCS: 36415; 51702; 80053; 82570; 84156; 85025; 85027; 85049; 86780; 86850; 86900; 86901; 87340; C1726; J2001; J2405; J2590; J3475; J3490; J7050

== ENCOUNTER 2019-12-28 13:59 | Emergency (ER) | payer MEDICAID | END 2019-12-28 14:23 | disposition left against medical advice (07) | LOC: ERS 13:59 | DX: O86.4 Pyrexia of unknown origin following delivery (principal) | CPT/HCPCS: 99283 ==

== ENCOUNTER 2019-12-28 19:06 | Emergency (ER) | payer MEDICAID, SELFPAY | END 2019-12-28 19:54 | disposition home or self-care (01) | LOC: ERS 19:06 | DX: O90.89 Other complications of the puerperium, not elsewhere classified (principal); R10.9 Unspecified abdominal pain; R50.9 Fever, unspecified | CPT/HCPCS: 99283 ==